=== PATIENT | female | born 1960 | race Caucasian/White ===

== ENCOUNTER → 2016-12-18 | Outpatient (CLI) | payer MEDICARE, OTHER ==
[~2016-12-18] MED LIST: AZITHROMYCIN500 MG PO; HYDROCHLOROTHIA25 MG PO; LIPITOR TAB 2020 MG PO; LORTAB 7.5-3251 EACH PO; NORVASC 5 MG TAB5 MG PO; SYNTHROID100 MCG PO; TRICOR 145 MG145 MG PO; ZANAFLEX4 MG PO; ZESTRIL 40 MG T40 MG PO
== END ==
LOC: CT 12-11 10:00
DX: Z87.891 Personal history of nicotine dependence (principal); J43.9 Emphysema, unspecified
CPT/HCPCS: G0297

== ENCOUNTER → 2022-01-19 | Outpatient (CLI) | payer MEDICARE, OTHER ==
[~2022-01-19] MED LIST changes: +AMLODIPINE BESYL5 MG PO; +ASPIRIN CHEWABL81 MG PO; +FENOFIBRATE160 MG PO; +GLUCOPHAGE500 MG PO; +IMDUR ER TAB 3030 MG PO; +LISINOPRIL10 MG PO; +MEDROL DOSEPAK 24 MG PO; +NITROGLYCERIN0.4 MG SL; -NORVASC 5 MG TAB5 MG PO; +NORVASC2.5 MG PO; +SERTRALINE HCL50 MG PO; +SYMBICORT 16010.2 GM INH; -TRICOR 145 MG145 MG PO
== END ==
LOC: RAD 11:56
DX: M54.41 Lumbago with sciatica, right side (principal); M47.815 Spondylosis without myelopathy or radiculopathy, thoracolumbar region
CPT/HCPCS: 72110

== ENCOUNTER → 2022-05-09 | Outpatient (CLI) | payer MEDICARE, OTHER ==
[~2022-05-09] MED LIST changes: +HYDROCODON-ACE1 EAC2 PO; +PROAIR HFA8.5 GM INH; +TRAZODONE HCL100 MG PO; +VITAMIN B-121000 MCG PO
[2022-05-09 08:25] LABS: RED BLOOD COUNT 4.56 M/UL (4.00-5.10); WHITE BLOOD COUNT 11.7 K/UL (4.5-11.0)
[2022-05-09 09:03] LABS: BUN/CREATININE RATIO 24 (0-10)
== END ==
LOC: LAB 08:04
PROVIDERS: Family Medicine Addiction Medicine
DX: H34.8310 Tributary (branch) retinal vein occlusion, right eye, with macular edema (principal)
CPT/HCPCS: 36415; 80048; 85025; 85652

== ENCOUNTER 2022-05-11 12:57 | Observation (INO) | payer MEDICARE, OTHER ==
[~2022-05-11] VITALS: Ht 162.6 cm; Wt 99.8 kg
[~2022-05-11 12:57] MED LIST changes: -HYDROCODON-ACE1 EAC2 PO; -PROAIR HFA8.5 GM INH; -TRAZODONE HCL100 MG PO; -VITAMIN B-121000 MCG PO
[2022-05-11 13:42] LABS: HEMOGLOBIN 13.3 gm/dl (12.3-15.3); RED BLOOD COUNT 4.38 M/UL (4.00-5.10)
[2022-05-11] MEDS ORDERED: TRAZODONE HCL100 MG PO (15:35)
[2022-05-11] MEDS ORDERED: HYDROCODON-ACE1 EAC2 PO (15:35)
[2022-05-11] MEDS ORDERED: PROAIR HFA8.5 GM INH (15:35)
[2022-05-11] MEDS ORDERED: VITAMIN B-121000 MCG PO (15:36)
[2022-05-12 01:32] LABS: HEMOGLOBIN 12.4 gm/dl (12.3-15.3); RED BLOOD COUNT 4.14 M/UL (4.00-5.10)
[2022-05-12 02:11] LABS: BUN/CREATININE RATIO 29 (0-10)
[2022-05-12] MEDS ORDERED: ISOSORBIDE MONO30 MG PO (16:21)
[2022-05-12] MEDS ORDERED: AMLODIPINE BESYL5 MG PO (16:21)
== END 2022-05-12 17:36 | disposition home or self-care (01) ==
LOC: ER1 12:57 → M/S 15:12 → CDU 15:12 → M/S 16:40
PROVIDERS: Nurse Practitioner; Physician Assistant; ADMIT Internal Medicine Infectious Disease
DX: R07.89 Other chest pain (principal); J44.9 Chronic obstructive pulmonary disease, unspecified; J96.11 Chronic respiratory failure with hypoxia; J96.12 Chronic respiratory failure with hypercapnia; I11.0 Hypertensive heart disease with heart failure; I50.32 Chronic diastolic (congestive) heart failure; E11.9 Type 2 diabetes mellitus without complications; R91.1 Solitary pulmonary nodule; E87.3 Alkalosis; E03.9 Hypothyroidism, unspecified; F41.9 Anxiety disorder, unspecified; F17.210 Nicotine dependence, cigarettes, uncomplicated; Z99.81 Dependence on supplemental oxygen; Z20.822 Contact with and (suspected) exposure to COVID-19
CPT/HCPCS: ECHO; 0240U; 36415; 71045; 71250; 78452; 80048; 80053; 81001; 82550; 82553; 82962; 83735; 83880; 84484; 85025; 85610; 85730; 93005; 93017; 93306; 94640; 94664; 94760; 99285; A9502; G0378; J2785

== ENCOUNTER → 2022-06-20 | Outpatient (CLI) | payer MEDICARE, OTHER ==
[~2022-06-20] MED LIST changes: +HYDROCODON-ACE1 EAC2 PO; +ISOSORBIDE MONO30 MG PO; +PROAIR HFA8.5 GM INH; +TRAZODONE HCL100 MG PO; +VITAMIN B-121000 MCG PO
== END ==
LOC: EXRD 10:28
DX: R60.0 Localized edema (principal)
CPT/HCPCS: 93970